=== PATIENT | female | born 1985 | race African-American/Black ===

== ENCOUNTER 2024-11-20 20:46 | Emergency (ER) | payer OTHER ==
[2024-11-20] MEDS ORDERED: Ondansetron PF 4 MG/2 ML Vial ONE (21:25)
[2024-11-20] MEDS ORDERED: Dicyclomine 20 MG TAB ONE (21:25)
[2024-11-20 21:27] LABS: Hematocrit 38.5 % (36.0-47.0); Hemoglobin 13.3 g/dL (12.0-16.0); Mean Corpuscular HGB CONC 34.6 g/dL (32.0-36.0); Mean Corpuscular Hemoglobin 29.8 pg (27.0-31.0); Mean Corpuscular Volume 86.1 fl (78.0-98.0); Mean Platelet Volume 6.2 fL (7.4-10.4); Platelet Count 349 10x3/uL (130-400); RBC Distribution Width 10.6 % (11.5-14.5); Red Blood Cell (RBC) Count 4.47 mill/uL (4.20-5.40); White Blood Cell (WBC) Count 7.7 10x3/uL (4.8-10.8)
[2024-11-20 21:37] LABS: ALT (SGPT) 18 U/L (8-55); AST (SGOT) 21 U/L (5-34); Albumin 4.4 g/dL (3.5-5.0); Alkaline Phosphatase 49 U/L (40-110); Anion Gap 17 mmol/L (10-20); BUN (Urea Nitrogen) 16 mg/dL (7.0-18.7); Bilirubin, Total 0.3 mg/dL (0.2-1.2); Calc. Creatinine Clearance 0 mL/min (70-130); Calcium 10.6 mg/dL (7.8-10.44); Carbon Dioxide 20 mmol/L (22-29); Chloride 102 mmol/L (98-107); Estimated GFR 65; Globulin 4.2 g/dL (2.4-3.5); Glucose 104 mg/dL (70-105); Potassium 3.2 mmol/L (3.5-5.1); Protein, Total 8.6 g/dL (6.0-8.3); Sodium 136 mmol/L (136-145)
[2024-11-20 21:41] LABS: Eosinophils 1 % (0-10); Lymphocytes 62 % (21-51); MDiff Complete? YES; Monocytes 1 % (0-10); Neutrophil 36 % (42-75); Platelet Adequacy Comment Appears Adequate
[2024-11-20] MEDS ORDERED: Potassium Chloride 20 MEQ TAB ONE (21:59)
== END 2024-11-20 22:51 | disposition short-term general hospital (02) ==
LOC: BURERS 20:46
DX: O99.891 Other specified diseases and conditions complicating pregnancy (principal); R10.9 Unspecified abdominal pain; Z3A.01 Less than 8 weeks gestation of pregnancy
CPT/HCPCS: 80053; 84702; 85025; 96361; 96374; J2405